=== PATIENT | male | born 1980 | race Caucasian/White ===

== ENCOUNTER 2017-11-28 17:08 | Emergency (ER) | payer SELFPAY ==
[~2017-11-28] VITALS: Ht 180.3 cm; Wt 124.7 kg
[~2017-11-28 17:08] MED LIST: PAXIL; VALS160T51 OR
[2017-11-28 17:15] VITALS: BP 150/95
[2017-11-28] MEDS ORDERED: TETANUS-DIPTH-ACEL PERTUSSIS 0.5ML SYRG IM ONE (18:45)
[2017-11-28] MEDS ORDERED: LIDOCAINE 1% (LOCAL ANESTH.) PF 5ml SDV ID ONE (19:15)
== END 2017-11-28 19:11 | disposition home or self-care (01) ==
LOC: ER 17:08
DX: S61.412A Laceration without foreign body of left hand, initial encounter (principal); I11.0 Hypertensive heart disease with heart failure; I50.9 Heart failure, unspecified; X58.XXXA Exposure to other specified factors, initial encounter; Y93.89 Activity, other specified; Y99.8 Other external cause status; Y92.89 Other specified places as the place of occurrence of the external cause
CPT/HCPCS: 12001; 90471; 90715

== ENCOUNTER 2024-10-03 16:59 | Inpatient (IN) | payer BC, OTHER ==
[~2024-10-03] VITALS: Ht 180.3 cm; Wt 148.1 kg
[~2024-10-03 16:59] MED LIST changes: +VALS160T4 OR; -VALS160T51 OR
[2024-10-03] MEDS: ASPirin 81 mg TAB PO ONE (17:15)
[2024-10-03] MEDS: cloNIDine HCL 0.1 MG TAB PO ONE (17:16)
--- NOTE | 2024-10-03 17:16 | ED.PDOC ---
HPI Comments This is a 44 year old male presenting to the ED with chief complaint of chest pain. Patient reports that he started to experiencing right sided chest tightness that radiated to his left chest and with associated SOB, dizziness, lightheadedness, and sweats this morning while driving to work. Patient relays that he ended up going to work any ways, staying until the end of his shift and went home to check his BP, coming back as 198/137. Patient states that his pain is now a 4/10 and his pain is worsened with movement and deep breathing. Patient denies any headache, N/V, fever, chills, abdominal pain, or syncope. Chief Complaint: Chest Pain Time Seen by MD: 17:11 Primary Care Provider: KIRK Reviewed Notes: Nurses Notes, Medications, Allergies Allergies: Coded Allergies: NO KNOWN ALLERGIES (Unverified , 01/02/11) Home Meds Reported Medications [Paxil] No Conflict Check 01/02/11 Valsartan (Diovan) 160 Mg Tab, 160 MG OR 01/02/11 Information Source: Patient Mode of Arrival: Ambulatory Severity: Moderate Timing: Hours Duration: Since onset Prehospital treatment: None Location: Chest (R), Chest (L) Radiation: No Radiation Quality: Tightness Onset: At Rest Cardiac Risk Factors: HTN PE Risk Factors: None History of: AL Associated Signs and Symptoms: SOB Past Medical History PAST MEDICAL HISTORY: Anxiety, CHF, Depression, HTN, Kidney Stones, AL, Seizures Surgical History (Other): Kidney stent Family History Family History: Reviewed,noncontributory to illness Social History Smoker: Non-Smoker Alcohol: Occasionally Drugs: Denies Drug Use Lives In: Home Constitutional: reports: sweats; denies: chills, diaphoresis, fatigue, fever, malaise, weakness, others EENTM: denies: blurred vision, double vision, ear bleeding, ear discharge, ear drainage, ear pain, ear ringing, eye pain, eye redness, hearing loss, mouth pain, mouth swelling, nasal discharge, nose bleeding, nose congestion, nose pain, photophobia, tearing, throat pain, throat swelling, voice changes, others Respiratory: reports: shortness of breath; denies: cough, hemoptysis, orthopnea, SOB at rest, SOB with excertion, stridor, wheezing, others Cardiovascular: reports: chest pain, left arm pain; denies: dizzy spells, diaphoresis, Dyspnea on exertion, edema, irregular heart beat, lightheadedness, palpitations, PND, syncope, others Gastrointestinal: denies: abdomen distended, abdominal pain, blood streaked bowels, constipated, diarrhea, dysphagia, difficulty swallowing, hematemesis, melena, nausea, poor appetite, poor fluid intake, rectal bleeding, rectal pain, vomiting, others Genitourinary: denies: burning, dysuria, flank pain, frequency, hematuria, incontinence, penile discharge, penile sore, pain, testicle pain, testicle swelling, urgency, others Neurological: reports: dizziness; denies: fainting, headache, left sided numbness, left sided weakness, numbness, paresthesia, pre-existing deficit, right sided numbness, right sided weakness, seizure, speech problems, tingling, tremors, weakness, others Musculoskeletal: denies: back pain, gout, joint pain, joint swelling, muscle pain, muscle stiffness, neck pain, others Integumetry: denies: bruises, change in color, change in hair/nails, dryness, laceration, lesions, lumps, rash, wounds, others Allergic/Immunocompromised: denies: Difficulty Healing, Frequent Infections, Hives, Itching, others Hematologic/Lymphatic: denies: anemia, blood clots, easy bleeding, easy bruising, swollen glands, others Endocrine: denies: excessive hunger, excessive sweating, excessive thirst, excessive urination, flushing, intolerance to cold, intolerance to heat, unexplained weight gain, unexplained weight loss, others Psychiatric: denies: anxiety, bipolar disorder, depression, hopeless, panic disorder, schizophrenia, sleepless, suicidal, others All Other Systems: Reviewed and Negative Physical Exam General Appearance: Moderate Distress HEENT: Normal ENT Inspection, Pharynx Normal, TMs Normal Neck: Full Range of Motion, Non-Tender, Normal, Normal Inspection Respiratory: Chest Non-Tender, Lungs Clear, No Accessory Muscle Use, No Respiratory Distress, Normal Breath Sounds Cardiovascular: No Edema, No JVD, No Murmur, No Gallop, Normal Peripheral Pulses, Regular Rate/Rhythm Breast Exam: Deferred Gastrointestinal: No Organomegaly, Non Tender, No Pulsatile Mass, Normal Bowel Sounds, Soft Genitalia: Deferred Pelvic: Deferred Rectal: Deferred Extremities: No calf tenderness, Normal capillary refill, Normal inspection, Normal range of motion, Non-tender, No pedal edema Musculoskeletal : Apperance: Normal Neurologic: Alert, certified nurses aide II-XII nml as Tested, No Motor Deficits, Normal Affect, Normal Mood, No Sensory Deficits Cerebellar Function: Normal Reflexes: Normal Skin: Dry, Normal Color, Warm Lymphatic: No Adenopathy EKG EKG : Pulse Rate (adult): 78 [place]: Normal Cardiac Rhythm: NSR Block: None Hypertrophy: None ST: Normal Was a procedure done? Was a procedure done?: No CP Differential Dx Differential Diagnosis: Angina, AL, Pulmonary Embolus Differential Diagnosis: CHF X-Ray, Labs, Meds, VS Vital Signs Date Time Temp Pulse Resp B/P (MAP) Pulse Ox O2 Delivery O2 Flow Rate FiO2 10/03/24 18:33 68 10/03/24 18:19 170/109 10/03/24 18:00 73 10/03/24 17:41 72 18 96 Room Air* 0 21 10/03/24 17:41 72 18 177/120 (139) 96 10/03/24 17:20 78 10/03/24 17:16 211/138 10/03/24 17:04 78 10/03/24 17:01 97.5 81 20 211/138 (162) 97 97.5 Lab Test 10/03/24 18:30 10/03/24 17:03 Range/Units Troponin I High Sensitivity 72 *H 74 *H </=54 ng/L White Blood Count 8.7 4.4-10.8 10^3/uL Red Blood Count 5.76 4.5-5.90 10^6/uL Hemoglobin 15.7 13.5-17.5 g/dL Hematocrit 46.2 41.0-53.0 % Mean Corpuscular Volume 80.3 80.0-100.0 fL Mean Corpuscular Hemoglobin 27.3 L 28.0-32.0 pg Mean Corpuscular Hemoglobin Concent 34.0 32.0-36.0 g/dL Red Cell Distribution Width 15.3 H 11.8-14.3 % Platelet Count 235 140-450 10^3/uL Mean Platelet Volume 7.2 6.9-10.8 fL Neutrophils (%) (Auto) 61.5 37.0-80.0 % Lymphocytes (%) (Auto) 27.6 10.0-50.0 % Monocytes (%) (Auto) 6.8 0.0-12.0 % Eosinophils (%) (Auto) 3.5 0.0-7.0 % Basophils (%) (Auto) 0.6 0.0-2.0 % Neutrophils # (Auto) 5.3 1.6-8.6 10 ^3/uL Lymphocytes # (Auto) 2.4 0.4-5.4 10 ^3/uL Monocytes # (Auto) 0.6 0-1.3 10 ^3/uL Eosinophils # (Auto) 0.3 0-0.8 10 ^3/uL Basophils # (Auto) 0.1 0-0.2 10 ^3/uL Nucleated Red Blood Cells 0.4 % D-Dimer, Quantitative 0.38 0.0-0.49 mg/L FEU Sodium Level 143 136-145 mmol/L Potassium Level 3.2 L 3.5-5.1 mmol/L Chloride Level 106 98-107 mmol/L Carbon Dioxide Level 28 20-31 mmol/L Anion Gap 9 5-15 Blood Urea Nitrogen 17 9-23 mg/dL Creatinine 1.16 0.700-1.30 mg/dL Glomerular Filtration Rate Calc 79 >90 mL/min BUN/Creatinine Ratio 14.7 10.0-20.0 Serum Glucose 90 74-106 mg/dL Calcium Level 9.6 8.7-10.4 mg/dL B-Type Natriuretic Peptide 11.04 0-100 pg/mL Current Medications Medications (Trade) Dose Ordered Sig/Tristen Route Start Time Stop Time Status Last Admin Aspirin 162 mg ONCE ONCE PO 10/03/24 17:15 10/03/24 17:16 DC 10/03/24 17:15 Clonidine HCl (Catapres Tablet) 0.2 mg ONCE ONCE PO 10/03/24 17:15 10/03/24 17:16 DC 10/03/24 17:16 Chest XR indicates: Mild pulmonary vascular congestion or viral pneumonias The patient was given clonidine 0.2 mg by mouth The patient was given aspirin 160 mg by mouth The D-dimer is within normal limits The patient's chemistry panel shows hypokalemia at 3.2 The patient is being given potassium p.o. The CBC is within normal limits The patient's troponin level went from 74-72 A cardiology consult will be obtained. The patient is being admitted at this time Images Reviewed?: Images reviewed and evaluated by me Time of 1ST Reevaluation: 19:23 Reevaluation 1ST: Unchanged Patient Education/Counseling: Diagnosis, Treatment Family Education/Counseling: No Family Present Additional Information Reviewed patient's previous visit(s): 11/28/2017 for laceration The following tests were ordered, and results were reviewed by me: CBC, BMP, UA, D-Dimer, Troponin, EKG, Chest XR Additional information was gathered from interviewing the following independent historian: None I reviewed and agreed with the following test results read by other provider: Chest XR I discussed treatments and results with medical personnel and: PATIENT Comprehensive systems review obtained and negative except for what is stated in the HPI. SEPSIS Sepsis Screen Physician Orders Electrocardigram (10/03/24 18:00) Electrocardigram (10/03/24 20:00) Troponin-I Hs (10/03/24 20:00) Heplock Iv (10/03/24 17:07) Chest Two Views Routine (10/03/24 17:07) Urinalysis (10/03/24 17:07) Admit (10/03/24 19:22) Nitroglycerin Sublingual (Ntrostat Subli (10/03/24 19:30) Morphine Sulfate Injection (10/03/24 19:30) Stat Ekg For Chest Pain (10/03/24 19:22) Notify Md Of Changes From Base (10/03/24 19:22) Corrections Cadet For 24 Hours (10/03/24 19:22) Emergency Dysrhythmia Protocol (10/03/24 19:22) Rhythm Strips Once Every Shift (10/03/24 19:22) Oxygen By Nasal Cannula (10/03/24 19:22) Vital Signs Date Time Temp Pulse Resp B/P (MAP) Pulse Ox O2 Delivery O2 Flow Rate FiO2 10/03/24 18:33 68 10/03/24 18:19 170/109 10/03/24 18:00 73 10/03/24 17:41 72 18 96 Room Air* 0 21 10/03/24 17:41 72 18 177/120 (139) 96 10/03/24 17:20 78 10/03/24 17:16 211/138 10/03/24 17:04 78 10/03/24 17:01 97.5 81 20 211/138 (162) 97 97.5 Laboratory Tests Test 10/03/24 17:03 White Blood Count 8.7 10^3/uL (4.4-10.8) Medications Medications Dose Ordered Sig/Tristen Route Start Time Stop Time Status Last Admin Dose Admin Aspirin 162 mg ONCE ONCE PO 10/03/24 17:15 10/03/24 17:16 DC 10/03/24 17:15 Clonidine HCl 0.2 mg ONCE ONCE PO 10/03/24 17:15 10/03/24 17:16 DC 10/03/24 17:16 Departure 1 Departure Time of Disposition: 19:24 Impression: Primary Impression: Acute coronary syndrome Disposition: ADMITTED INPATIENT Admit to: Tele Condition: Fair Critical Care Note Critical Care Time?: Yes (55 min-critical care time only) Stability Stability form required: Yes Unstable for transfer: Telemetry monitoring (Telemetry monitoring required), ED Physician Assesment (Clinical assesment) Heart Score Heart Score: Heart Score Response (Comments) Value History Highly Suspicious 2 EKG Normal 0 Age <45 0 Risk Factors >3 or Hx ASHD 2 Troponin 1-2 x's Normal limit 1 Total 5 I personally scribed for EDUARDA HATFIELD MD ([facility]) on 10/03/24 at 17:16. Electronically submitted by Mendoza Holland ([facility]). I personally scribed for EDUARDA HATFIELD MD ([facility]) on 10/03/24 at 17:20. Elect ronically submitted by Mendoza Holland ([facility]). I personally scribed for EDUARDA HATFIELD MD ([employer]) on 10/03/24 at 17:57. Elec tronically submitted by Mendoza Holland ([facility]). EDUARDA HATFIELD MD Oct 03, 2024 17:16
[2024-10-03 17:41] VITALS: PULSE 72; RESP 18; O2SAT 96
--- NOTE | 2024-10-03 17:47 | DVH ---
CHEST RADIOGRAPH Indication: cp Technique: Frontal and lateral view of the chest was obtained Comparison: None FINDINGS: Lines and Tubes: None Lungs: Increased interstitial prominence Pleura: No effusion. No pneumothorax. Cardiomediastinal contours: Unremarkable Bones: Unremarkable IMPRESSION: Mild pulmonary vascular congestion or viral pneumonias
[2024-10-03 18:21] LABS: Chloride 106 mmol/L (98-107); Sodium 143 mmol/L (136-145)
[2024-10-03 18:22] LABS: Anion Gap 9 (5-15); Carbon Dioxide 28 mmol/L (20-31)
[2024-10-03 18:23] LABS: Basophils # (auto) 0.1 10 ^3/uL (0-0.2); Basophils % (auto) 0.6 % (0.0-2.0); Calcium 9.6 mg/dL (8.7-10.4); Eosinophils # (auto) 0.3 10 ^3/uL (0-0.8); Eosinophils % (auto) 3.5 % (0.0-7.0); Hematocrit 46.2 % (41.0-53.0); Hemoglobin 15.7 g/dL (13.5-17.5); Lymphocytes # (auto) 2.4 10 ^3/uL (0.4-5.4); Lymphocytes % (auto) 27.6 % (10.0-50.0); Mean Corpuscular Hemoglobin 27.3 pg (28.0-32.0); Mean Corpuscular Volume 80.3 fL (80.0-100.0); Monocytes # (auto) 0.6 10 ^3/uL (0-1.3); Monocytes % (auto) 6.8 % (0.0-12.0); Neutrophils # (auto) 5.3 10 ^3/uL (1.6-8.6); Neutrophils % (auto) 61.5 % (37.0-80.0); Nucleated Red Blood Cells % 0.4 %; Platelet Count (auto) 235 10^3/uL (140-450); Red Blood Cells 5.76 10^6/uL (4.5-5.90); Red Cell Distribution Width 15.3 % (11.8-14.3); White Blood Cell 8.7 10^3/uL (4.4-10.8)
[2024-10-03 18:25] LABS: Potassium 3.2 mmol/L (3.5-5.1)
[2024-10-03 18:27] LABS: Glucose 90 mg/dL (74-106)
[2024-10-03 18:28] LABS: BUN/Creatinine Ratio 14.7 (10.0-20.0); Blood Urea Nitrogen 17 mg/dL (9-23)
--- NOTE | 2024-10-03 18:34 | ECG ---
[facility] Test Date: 2024-10-03 Test Time: 18:33:28 Pat Name: VIVIANE HOWELL Department: ED Room: [address] [place] [address] Gender: M Hyperbaric Technician: BREANNE : 1980 Requested By: EDUARDA HATFIELD Order Number: [id number] Reading MD: Arturo Whitney Measurements Intervals [place] Rate: 68 P: 39 AK: 158 QRS: 39 QRSD: 102 T: -19 QT: 395 QTc: 421 Interpretive Statements Sinus rhythm Probable inferior infarct, age indeterminate Baseline wander in lead(s) I,II,aVR Electronically Signed On 10-03-2024 22:59:38 PDT by Arturo Whitney Please click the below link to view image of tracing.
[2024-10-03] MEDS ORDERED: MORPHINE SULFATE INJ 2 MG/ml SYRG IV PRN (19:30)
[2024-10-03] MEDS ORDERED: ONDANSETRON HCL 4 MG/2 ML VIAL IV PRN (19:30)
[2024-10-03] MEDS ORDERED: NITROGLYCERIN 0.4 MG SL TAB SL PRN (19:30)
[2024-10-03 19:48] VITALS: PULSE 72; RESP 19; O2SAT 96
[2024-10-03] MEDS: POTASSIUM CHL 20 Meq TABLET PO ONE (20:12)
[2024-10-03] MEDS: hydrALAZINE HCL 25 MG TAB PO SCH (22:38)
[2024-10-03] MEDS: ATORVASTATIN 20 MG TAB PO SCH (22:38)
[2024-10-03 23:10] LABS: Urine Bacteria None Seen /hpf (None Seen)
[2024-10-03 23:23] LABS: Urine Blood Negative /uL (Negative); Urine Clarity Clear (Clear); Urine Color Light-Yellow (Yellow); Urine Protein, UAD Negative (Negative); Urine Squamous Epithelial Cell None Seen /hpf (<5); Urine Urobilinogen Normal (Negative); Urine WBC 2 /HPF (0-3)
--- NOTE | 2024-10-03 23:34 | DVHHP2 ---
History of Present Illness Reason for Visit: Chest pain History of Present Illness 44-year-old male presents for evaluation of chest pain. Patient reports a one day history of pain in his chest at the starting on his right side and radiating to his left. Patient was driving to work when it started. Reports mild shortness for breath. No nausea or vomiting. No other acute complaints reported. Past Medical History MS, seizures, hypertension, depression, CHF Past Surgical History Kidney stent Family History Noncontributory Smoke: No ALCOHOL: occassional Drugs: None Lives: with Family Review of Systems Review of Systems Review of systems are currently negative otherwise addressed in HPI. Allergies: Coded Allergies: NO KNOWN ALLERGIES (Unverified , 01/02/11) Medications Current Medications Medications Dose Ordered Sig/Tristen Route Start Time Stop Time Status Last Admin Dose Admin Nitroglycerin 0.4 mg Q5MINP PRN SL 10/03/24 19:30 Morphine Sulfate 2 mg Q30M PRN IV 10/03/24 19:30 Aspirin 162 mg DAILY PO 10/04/24 10:00 Atorvastatin Calcium 10 mg HS PO 10/03/24 22:00 10/03/24 22:38 10 MG Losartan Potassium 100 mg DAILY PO 10/04/24 10:00 Hydrochlorothiazide 25 mg DAILY PO 10/04/24 10:00 Hydralazine HCl 50 mg Q8HR PO 10/03/24 22:00 10/03/24 22:38 50 MG Ondansetron HCl 4 mg Q4HP PRN IV 10/03/24 19:30 Acetaminophen 650 mg Q6HP PRN PO 10/03/24 19:30 Exam Vital Signs Vital Signs Date Time Temp Pulse Resp B/P (MAP) Pulse Ox O2 Delivery O2 Flow Rate FiO2 10/03/24 22:38 150/105 10/03/24 22:00 66 16 96 10/03/24 19:51 97.9 97.9 10/03/24 19:48 Room Air* 0 21 Exam Gen: 44-year-old male in mild distress, morbidly obese Skin: Warm, dry, normal color and texture, no rash. HEENT: Normocephalic atraumatic, mucous membranes moist and pink. Neck: Cervical and supraclavicular nodes normal without enlargement, trachea is midline, thyroid gland is normal without masses. Pulmonary: Clear to auscultation and percussion bilaterally. Cardiac: Regular rate and rhythm. No murmur Abdomen: Soft, nontender, nondistended, bowel sounds present all 4 quadrants, no guarding, no rigidity, no organomegaly. Extremities: No cyanosis, clubbing, no edema Neuro: Cranial nerves II through XII grossly intact, normal affect and speech, no focal motor deficits. Labs/Xrays ORDERING PHYSICIAN: EDUARDA HATFIELD MD PROCEDURE(s): CXR2 - CHEST TWO VIEWS ROUTINE REASON: cp ORDER NUMBER(s): [id number], ACCESSION NUMBER(s): [id number] CHEST RADIOGRAPH Indication: cp Technique: Frontal and lateral view of the chest was obtained Comparison: None FINDINGS: Lines and Tubes: None Lungs: Increased interstitial prominence Pleura: No effusion. No pneumothorax. Cardiomediastinal contours: Unremarkable Bones: Unremarkable IMPRESSION: Mild pulmonary vascular congestion or viral pneumonias Labs Test 10/03/24 20:00 10/03/24 17:14 10/03/24 17:03 Range/Units Troponin I High Sensitivity 61 *H </=54 ng/L White Blood Count 8.7 4.4-10.8 10^3/uL Red Blood Count 5.76 4.5-5.90 10^6/uL Hemoglobin 15.7 13.5-17.5 g/dL Hematocrit 46.2 41.0-53.0 % Mean Corpuscular Volume 80.3 80.0-100.0 fL Mean Corpuscular Hemoglobin 27.3 L 28.0-32.0 pg Mean Corpuscular Hemoglobin Concent 34.0 32.0-36.0 g/dL Red Cell Distribution Width 15.3 H 11.8-14.3 % Platelet Count 235 140-450 10^3/uL Mean Platelet Volume 7.2 6.9-10.8 fL Neutrophils (%) (Auto) 61.5 37.0-80.0 % Lymphocytes (%) (Auto) 27.6 10.0-50.0 % Monocytes (%) (Auto) 6.8 0.0-12.0 % Eosinophils (%) (Auto) 3.5 0.0-7.0 % Basophils (%) (Auto) 0.6 0.0-2.0 % Neutrophils # (Auto) 5.3 1.6-8.6 10 ^3/uL Lymphocytes # (Auto) 2.4 0.4-5.4 10 ^3/uL Monocytes # (Auto) 0.6 0-1.3 10 ^3/uL Eosinophils # (Auto) 0.3 0-0.8 10 ^3/uL Basophils # (Auto) 0.1 0-0.2 10 ^3/uL Nucleated Red Blood Cells 0.4 % D-Dimer, Quantitative 0.38 0.0-0.49 mg/L FEU Sodium Level 143 136-145 mmol/L Potassium Level 3.2 L 3.5-5.1 mmol/L Chloride Level 106 98-107 mmol/L Carbon Dioxide Level 28 20-31 mmol/L Anion Gap 9 5-15 Blood Urea Nitrogen 17 9-23 mg/dL Creatinine 1.16 0.700-1.30 mg/dL Glomerular Filtration Rate Calc 79 >90 mL/min BUN/Creatinine Ratio 14.7 10.0-20.0 Serum Glucose 90 74-106 mg/dL Calcium Level 9.6 8.7-10.4 mg/dL B-Type Natriuretic Peptide 11.04 0-100 pg/mL Assessment/Plan Assessment/Plan Assessment Chest pain rule out ACS Accelerated hypertension Hypokalemia Morbid obesity Plan Admit the patient to telemetry to the hospitalist Cardiology consultation Replete electrolytes Resume home medications Continue treatment per orders. Plan discussed with: Patient My Orders Orders - KEHINDE DAVALOS AGACNP Procedure Category Date Status Time Admit ADMIT 10/03/24 Transmitted 19:22 Nitroglycerin PHA 10/03/24 In Process Sublingual (Ntrostat 19:30 Morphine Sulfate PHA 10/03/24 In Process Injection 19:30 Stat Ekg For Chest TYLER 10/03/24 In Process Pain 19:22 Notify Of Changes TYLER 10/03/24 In Process From Base 19:22 Car Salesperson For TYLER 10/03/24 In Process 24 Hours 19:22 Emergency Dysrhythmia TYLER 10/03/24 In Process Protocol 19:22 Rhythm Strips Once TYLER 10/03/24 In Process Every Shift 19:22 Oxygen By Nasal RT 10/03/24 Transmitted Cannula 19:22 Aspirin Tablet PHA 10/04/24 In Process 10:00 Atorvastatin (Lipitor) PHA 10/03/24 In Process 22:00 Losartan Tablet PHA 10/04/24 In Process (Cozaar Tablet) 10:00 Hydrochlorothiazide PHA 10/04/24 In Process Tablet (Hydrochlorot 10:00 Hydralazine Hcl PHA 10/03/24 In Process Tablet (Apresoline 22:00 Basic Metabolic Panel LAB 10/04/24 Verified 04:00 * Cardiology Consult CONS 10/03/24 Transmitted 19:22 Ondansetron Hcl PHA 10/03/24 In Process (Zofran) 19:30 Cardiac DIET 10/04/24 Transmitted Diet-2gna,Lofat,Lochol Breakfast Echo 2d Mode Cardiac US 10/03/24 Logged DOP 19:22 Condition: Fair TYLER 10/03/24 In Process 19:22 Acetaminophen Tablet PHA 10/03/24 In Process (Tylenol Tablet) 19:30 Bedrest With Bathroom TYLER 10/03/24 In Process Privileg 19:22 Date of Service: Oct 03, 2024 Billing Provider: KEHINDE DAVALOS Common Visit Codes: [id number] INP/OBS CARE (HIGH) KEHINDE DAVALOS Oct 03, 2024 23:34
[2024-10-04] VITALS (7 sets, daily range): BP systolic 105–160; BP diastolic 57–97; PULSE 68–88; RESP 15–18; TEMP 97.5–98; O2SAT 95–98
[2024-10-04 00:04] LABS: Triglycerides 139 mg/dL (< 150)
[2024-10-04 00:06] LABS: Cholesterol 160 mg/dL (< 200); HDL Cholesterol 31 mg/dL (40-59); LDL Cholesterol 114 mg/dL (< 100)
[2024-10-04] MEDS: ACETAMINOPHEN 325 MG TAB PO PRN (05:01)
[2024-10-04 06:47] LABS: Anion Gap 8 (5-15); Carbon Dioxide 26 mmol/L (20-31); Chloride 104 mmol/L (98-107); Potassium 3.5 mmol/L (3.5-5.1); Sodium 138 mmol/L (136-145)
[2024-10-04 06:48] LABS: Calcium 8.8 mg/dL (8.7-10.4)
[2024-10-04 06:53] LABS: BUN/Creatinine Ratio 14.9 (10.0-20.0); Blood Urea Nitrogen 14 mg/dL (9-23)
[2024-10-04 06:54] LABS: Glucose 109 mg/dL (74-106)
[2024-10-04] MEDS: ATORVASTATIN 20 MG TAB PO SCH (07:56)
[2024-10-04] MEDS: ASPirin 81 mg TAB PO SCH (10:10)
[2024-10-04] MEDS: LOSARTAN POTASSIUM 50 MG TAB PO SCH (10:11)
[2024-10-04] MEDS: hydroCHLOROthiazide 25 MG TAB PO SCH (10:12)
[2024-10-04] MEDS ORDERED: amLODIPine BESYLATE 5 MG TAB PO ONE (11:15)
[2024-10-04 11:22] LABS: Basophils # (auto) 0 10 ^3/uL (0-0.2); Basophils % (auto) 0.5 % (0.0-2.0); Eosinophils # (auto) 0.2 10 ^3/uL (0-0.8); Eosinophils % (auto) 3.5 % (0.0-7.0); Hematocrit 44.7 % (41.0-53.0); Hemoglobin 15.1 g/dL (13.5-17.5); Lymphocytes # (auto) 1.6 10 ^3/uL (0.4-5.4); Lymphocytes % (auto) 27.3 % (10.0-50.0); Mean Corpuscular Hemoglobin 27.3 pg (28.0-32.0); Mean Corpuscular Hgb Conc. 33.9 g/dL (32.0-36.0); Mean Corpuscular Volume 80.8 fL (80.0-100.0); Monocytes # (auto) 0.4 10 ^3/uL (0-1.3); Neutrophils # (auto) 3.5 10 ^3/uL (1.6-8.6); Neutrophils % (auto) 61.7 % (37.0-80.0); Nucleated Red Blood Cells % 0.1 %; Platelet Count (auto) 197 10^3/uL (140-450); Red Blood Cells 5.53 10^6/uL (4.5-5.90); Red Cell Distribution Width 15.5 % (11.8-14.3); White Blood Cell 5.7 10^3/uL (4.4-10.8)
[2024-10-04 12:27] LABS: INR 1.01 (0.9-1.15); Partial Thromboplastin Time 29.9 SEC (24.5-34.5); Prothrombin Time 10.7 sec (9.3-11.8)
[2024-10-04] MEDS ORDERED: LOSA-535 PO (12:33)
[2024-10-04] MEDS ORDERED: HYDR25TA5 PO (12:36)
[2024-10-04] MEDS ORDERED: ATOR10TA52 PO (12:36)
[2024-10-04] MEDS ORDERED: HYDR50TA47 PO (12:36)
[2024-10-04] MEDS: CARVEDILOL 3.125 MG TAB PO ONE (12:47)
--- NOTE | 2024-10-04 13:05 | DVHCONRES ---
Date Seen: Oct 04, 2024 Resident Creating Document: THIAGO JACOME RESIDENT Reason for Consultation chest pain History of Present Illness Patient is a 44-year-old male with past medical history of ureteral stents, hypertension, grand mal seizure 2 episodes in 2010, who comes in due to chest pain. According to the patient, yesterday on 10/03/2024 while he was driving to work at 4:00 a.m. in the morning he felt chest pain which was tight and pressure-like in nature, 4/10 in intensity, worsened with coughing or activity and relieved by resting. Patient localizes the chest pain below right pectoralis minor with radiation to the left. He notes pain continued throughout the day when he checked his blood pressure later at home it was noted to be 198/137 which is what prompted this visit to the hospital. Patient notes he had similar pain for years ago when he underwent left heart catheterization without catheter based interventions given negative coronary artery disease at the time. On review of systems patient is complaining of chills, shortness of breaths that started 2 days ago and dysuria. Serial troponins were 74, 72 and 61. EKG showed minimal dynamic ST changes, however, blood pressure was 170/100 at the time of EKG. Past Medical History ureteral stents, hypertension, grand mal seizure 2 episodes in 2010 Past Surgical History Left knee replacement surgery Family History: Patient reports no known family medical history. Social History Smoking: Denies Alcohol: Occasionally Drugs: Denies Allergies: Coded Allergies: NO KNOWN ALLERGIES (Unverified , 01/02/11) Home Meds Reported Medications Hctz (Hydrochlorothiazide) 25 Mg Tab, 1 TAB PO DAILY 10/04/24 Hydralazine Hcl (Hydralazine Hcl) 50 Mg Tab, 1 TAB PO TID PRN for blood pressure 10/04/24 Losartan Potassium (Losartan Potassium) 100 Mg Tab, 1 TAB PO DAILY, #30 TAB 5 Refills 10/04/24 Discontinued Reported Medications Atorvastatin Calcium (ATORVASTATIN CALCIUM) 10 Mg Tab, 1 TAB PO DAILY 10/04/24 [Paxil] No Conflict Check 01/02/11 Valsartan (Diovan) 160 Mg Tab, 160 MG OR 01/02/11 Current Medications Current Medications Medications (Trade) Dose Ordered Sig/Tristen Route PRN Reason Start Time Stop Time Status Last Admin Nitroglycerin (Ntrostat Sublingual) 0.4 mg Q5MINP PRN SL FOR CHEST PAIN 10/03/24 19:30 Morphine Sulfate 2 mg Q30M PRN IV FOR CHEST PAIN 10/03/24 19:30 Aspirin 162 mg DAILY PO 10/04/24 10:00 10/04/24 10:10 Atorvastatin Calcium (Lipitor) 10 mg HS PO 10/03/24 22:00 10/04/24 07:41 DC 10/03/24 22:38 Losartan Potassium (Cozaar Tablet) 100 mg DAILY PO 10/04/24 10:00 10/04/24 10:11 Hydrochlorothiazide (hydroCHLOROthiazide TABLET) 25 mg DAILY PO 10/04/24 10:00 10/04/24 10:12 Hydralazine HCl (Apresoline Tablet) 50 mg Q8HR PO 10/03/24 22:00 10/04/24 06:31 Ondansetron HCl (Zofran) 4 mg Q4HP PRN IV NAUSEA / VOMITING 10/03/24 19:30 Acetaminophen (Tylenol Tablet) 650 mg Q6HP PRN PO PAIN SCALE 1-3 OR TEMP>100.4 10/03/24 19:30 10/04/24 12:38 Atorvastatin Calcium (Lipitor) 40 mg HS PO 10/04/24 07:45 10/04/24 07:56 Heparin Sodium/ Dextrose 250 ml @ 10 mls/hr Q24H IV 10/04/24 12:45 Amlodipine Besylate (Norvasc Tablet) 10 mg DAILY PO 10/05/24 10:00 10/04/24 11:12 DC Carvedilol (Coreg Tablet) 6.25 mg Q12HR PO 10/04/24 22:00 Review of Systems Patient seen and examined at bedside. Patient is alert and oriented to time, place person and responding to all questions. General: Chills Eyes: No Pain, No Vision change, No Conjunctivae inflammation, No Eyelid inflammation, No Other, No Redness ENT: No Ear pain, No Ear discharge, No Nose pain, No Nose discharge, No Nose congestion, No Mouth pain, No Mouth swelling, No Throat pain, No Throat swelling, No Other Cardiovascular: No Chest Pain, No Palpitations, No Orthopnea, No Paroxysmal No Dyspnea, No Edema, No Lt Headedness, No Other Respiratory: No Cough, No Dry, Shortness of breath, No SOB with exertion, No Wheezing, No Hemoptysis, No Pleuritic Pain, No Sputum, No Other Gastrointestinal: No Nausea, No Vomiting, No Abdominal Pain, No Diarrhea, No Constipation, No Melena, No Hematochezia, No Other Genitourinary: Dysuria, No Frequency, No Incontinence, No Hematuria, No Retention, No Other Musculoskeletal: No other, No neck pain, No shoulder pain, No arm pain, No back pain, No hand pain, No leg pain, No foot pain Skin: No Rash, No Lesions, No Jaundice, No Bruising, No Other Vital Signs Vital Signs Date Time Temp Pulse Resp B/P (MAP) Pulse Ox O2 Delivery O2 Flow Rate FiO2 10/04/24 12:47 79 160/97 10/04/24 12:38 98.2 10/04/24 12:00 15 95 10/04/24 08:02 Room Air* 0 21 Physical Exam General Appearance: Cooperative. Well developed. Well nourished. NAD Head Exam: Normal inspection Neck Exam: Normal inspection. Non-tender. Normal alignment Pulmonary/Respiratory: Chest non-tender. Clear bilateral breath sounds, no crackles, no wheezing. Cardiovascular/Chest: Regular rate and rhythm. No murmurs. No JVD. Peripheral Pulses: 2+ Radial (R). 2+ Radial (L). 2+ Pedal (R). 2+ Pedal (L) Abdominal Exam: Normal bowel sounds. Soft. normal abdomen, no visible veins, Nontender. No hepatospenomegaly. No masses Lower extremities: 1+ lower extremity edema Neuro/Mental Status: A&O x4. Coherent. Thoughts/Psych: Normal thought pattern. Appropriate mood and affect. Good judgement and insight Skin Exam: Normal inspection. Normal color. Warm. Dry Labs/Diagnostic Data Labs Test 10/04/24 11:54 10/04/24 05:29 10/03/24 20:00 10/03/24 18:30 Range/Units Prothrombin Time 10.7 9.3-11.8 sec Prothrombin Time INR 1.01 0.9-1.15 Activated Partial Thromboplast Time 29.9 24.5-34.5 SEC White Blood Count 5.7 # 4.4-10.8 10^3/uL Red Blood Count 5.53 4.5-5.90 10^6/uL Hemoglobin 15.1 13.5-17.5 g/dL Hematocrit 44.7 41.0-53.0 % Mean Corpuscular Volume 80.8 80.0-100.0 fL Mean Corpuscular Hemoglobin 27.3 L 28.0-32.0 pg Mean Corpuscular Hemoglobin Concent 33.9 32.0-36.0 g/dL Red Cell Distribution Width 15.5 H 11.8-14.3 % Platelet Count 197 140-450 10^3/uL Mean Platelet Volume 7.7 6.9-10.8 fL Neutrophils (%) (Auto) 61.7 37.0-80.0 % Lymphocytes (%) (Auto) 27.3 10.0-50.0 % Monocytes (%) (Auto) 7.0 0.0-12.0 % Eosinophils (%) (Auto) 3.5 0.0-7.0 % Basophils (%) (Auto) 0.5 0.0-2.0 % Neutrophils # (Auto) 3.5 1.6-8.6 10 ^3/uL Lymphocytes # (Auto) 1.6 0.4-5.4 10 ^3/uL Monocytes # (Auto) 0.4 0-1.3 10 ^3/uL Eosinophils # (Auto) 0.2 0-0.8 10 ^3/uL Basophils # (Auto) 0 0-0.2 10 ^3/uL Nucleated Red Blood Cells 0.1 % Sodium Level 138 # 136-145 mmol/L Potassium Level 3.5 3.5-5.1 mmol/L Chloride Level 104 98-107 mmol/L Carbon Dioxide Level 26 20-31 mmol/L Anion Gap 8 5-15 Blood Urea Nitrogen 14 9-23 mg/dL Creatinine 0.94 0.700-1.30 mg/dL Glomerular Filtration Rate Calc 102 >90 mL/min BUN/Creatinine Ratio 14.9 10.0-20.0 Serum Glucose 109 H 74-106 mg/dL Calcium Level 8.8 8.7-10.4 mg/dL Troponin I High Sensitivity 61 *H </=54 ng/L Triglycerides Level 139 < 150 mg/dL Cholesterol Level 160 < 200 mg/dL LDL Cholesterol 114 H < 100 mg/dL HDL Cholesterol 31 L 40-59 mg/dL Thyroid Stimulating Hormone (TSH) 2.40 0.55-4.78 uIU/mL Test 10/03/24 17:14 10/03/24 17:03 Range/Units Urine Color Light-yellow Yellow Urine Clarity Clear Clear Urine pH 6.0 5.0-9.0 Urine Specific [place] 1.020 1.001-1.035 Urine Protein Negative Negative Urine Ketones Negative Negative Urine Blood Negative Negative /uL Urine Nitrite Negative Negative Urine Bilirubin Negative Negative Urine Urobilinogen Normal Negative mg/dL Urine Leukocyte Esterase Negative Negative /uL Urine RBC 1 0 - 3 /hpf Urine Microscopic WBC 2 0-3 /HPF Urine Squamous Epithelial Cells None seen <5 /hpf Urine Bacteria None seen None Seen /hpf Urine Glucose Normal Normal mg/dL D-Dimer, Quantitative 0.38 0.0-0.49 mg/L FEU B-Type Natriuretic Peptide 11.04 0-100 pg/mL Assessment Chest pain, rule out ACS Essential hypertension Hypertensive emergency S/p ureteral stents Plan: - patient completed stress test which preliminarily is positive for ischemia - patient is scheduled for left heart catheterization on Wednesday - Continue aspirin, statin - blood pressure management - rest of the plan as per course of hospitalization Thank you so much for the opportunity to consult on your patient. Cardiology team will follow the patient. In case of any questions or concerns please feel free to reach out. Plan discussed with Dr. Medina Plan discussed with: Patient, Other (RN) Visit Coding Cardiology RES Date of Service: Oct 04, 2024 Billing Provider: GEOVANNA MEDINA Sr., MD Cardiology Common Codes: [id number] INP/OBS CARE (High) THIAGO JACOME RESIDENT Oct 04, 2024 13:05
--- NOTE | 2024-10-04 13:57 | ECG ---
[facility] Test Date: 2024-10-03 Test Time: 17:04:55 Pat Name: VIVIANE HOWELL Department: ER Room: 0218T Gender: M Content Management Specialist: CLEO : 1980 Requested By: EDUARDA HATFIELD Order Number: [id number] Reading MD: Arturo Whitney Measurements Intervals Ashley Rate: 78 P: 25 NM: 157 QRS: 8 QRSD: 104 T: 20 QT: 366 QTc: 417 Interpretive Statements Sinus rhythm Electronically Signed On 10-07-2024 19:53:32 PDT by Arturo Whitney Please click the below link to view image of tracing.
[2024-10-04] MEDS: REGADENOSON 0.4 MG/5 ML SYRG IV ONE ×2 (14:35→14:43)
--- NOTE | 2024-10-04 14:49 | DVHPNRES ---
Progress Note Date Seen: Oct 04, 2024 Resident Creating Document: AMI COVARRUBIAS RAMYA Has the PT tested + for MRSA If YES, has PT been informed?: No Medical Necessity Reason Pt with a Central, PICC or Fol: No Subjective Review of Systems This is a 44 year old male with past medical history of OH, hypertension, seizure, and CHF came to the hospital due to chest pain. Per patient, yesterday morning at 4:00 a.m., he suddenly developed right-sided chest pain while he was driving. He described the pain as pressure-like, 7/10, radiating to the left side, constant, but increases with physical activity and with rest. He also reports of nausea, sweating, dizziness, mild shortness of breaths. He denies fever, cough, or any recent sick contacts/chest trauma. Per patient, he had an OH 4 years back, underwent angiography but the findings were not significant and no PCI was performed. It does not follow any cardiology regularly. PMHx: Per HPI PSHx: Noncontributory Family history: Noncontributory Social history: Denies smoking, or any other drug abuse. Drinks socially Home medication: Losartan 100 mg daily, hydralazine 50 mg 3 times daily, hydrochlorothiazide 25 mg daily, atorvastatin 10 mg daily, and amlodipine 10 mg daily. Patient does not take aspirin or clopidogrel. Patient seen and examined at the bedside. Patient is feeling better since admission but still complained of mild chest pain. Patient reports: No new complaints, Feels better Changes from previous H/P or p: Changes Objective vital signs Vital Sign Date Time Temp Pulse Resp B/P (MAP) Pulse Ox O2 Delivery O2 Flow Rate FiO2 10/04/24 14:05 97.5 74 17 105/57 (73) 97 97.5 10/04/24 08:02 Room Air* 0 21 Total Intake and Output 10/03/24 10/03/24 10/04/24 15:00 23:00 07:00 Output Total 700 ml Balance -700 ml medications Current Medications Medications Dose Ordered Sig/Tristen Route Start Time Stop Time Status Last Admin Dose Admin Nitroglycerin 0.4 mg Q5MINP PRN SL 10/03/24 19:30 Morphine Sulfate 2 mg Q30M PRN IV 10/03/24 19:30 Aspirin 162 mg DAILY PO 10/04/24 10:00 10/04/24 10:10 162 MG Losartan Potassium 100 mg DAILY PO 10/04/24 10:00 10/04/24 10:11 100 MG Hydrochlorothiazide 25 mg DAILY PO 10/04/24 10:00 10/04/24 10:12 25 MG Hydralazine HCl 50 mg Q8HR PO 10/03/24 22:00 10/04/24 06:31 50 MG Ondansetron HCl 4 mg Q4HP PRN IV 10/03/24 19:30 Acetaminophen 650 mg Q6HP PRN PO 10/03/24 19:30 10/04/24 12:38 650 MG Atorvastatin Calcium 40 mg HS PO 10/04/24 07:45 10/04/24 07:56 40 MG Heparin Sodium/ Dextrose 250 ml @ 10 mls/hr Q24H IV 10/04/24 12:45 Carvedilol 6.25 mg Q12HR PO 10/04/24 22:00 Examination General Appearance: Alert, Oriented X3, Cooperative, No acute distress HEENT: Atraumatic, PERRLA, EOMI, Mucous membrane moist/pink Respiratory: Bilateral lower zone mild crackles Cardiovascular: Regular rate, Normal S1, Normal S2, No murmurs, no chest wall tenderness Abdominal: Normal bowel sounds, Soft, No tenderness, No hepatospenomegaly, No masses Extremities: Bilateral trace pedal edema Skin: No rashes, No breakdown, No significant lesion Neuro: Normal gait, Normal speech, Strength at 5/5 X4 ext, Normal tone, Sensation intact, Cranial nerves 3-12 NL, Reflexes 2+ Psych/Mental Status: Mental status NL, Mood NL laboratory and microbiology Laboratory Tests 10/04/24 05:29 Test 10/04/24 05:29 Range/Units Serum Glucose 109 H 74-106 mg/dL Labs and/or images reviewed: Labs reviewed by me, Image(s) reviewed by me Problem List/Assessment/Plan Problem List/Assessment/Plan Chest pain, possibly cardiac Hypertensive emergency leading to NSTEMI NSTEMI, likely type 1 Morbid obesity History of hypertension Seizure Hypokalemia * EKGs shows, mild ST depression and T-wave inversion at inferior leads * Trop I is mildly raised, stable * XU score: 4 Plan/recommendation Aspirin, atorvastatin * Heparin drip * Consulted cardiology * Continue home meds * Pain management DIET: Cardiac diet DVT PROPHYLAXIS: Lovenox GI PROPHYLAXIS:: Protonix CODE STATUS: Goal of care discussed for more than 18 minutes, full code DISPOSITION: Telemetry Patient's status and plan discussed with the patient. Case discussed with Dr. Medina. Plan discussed with: Patient, Other (RN) My Orders My Orders Orders - AMI COVARRUBIAS RESDIBUZZ Procedure Category Date Status Time Atorvastatin (Lipitor) PHA 10/04/24 In Process 07:45 Drug Screen LAB 10/04/24 Logged 11:05 Platelet Monitoring [facility] [place] 10/04/24 In Process 11:05 Heparin Per [facility] [place] 10/04/24 In Process Standardized Proce 11:05 Discontinue All Im TYLER 10/04/24 In Process Injections 11:05 Heparin Drip/D5w [facility] 10/04/24 In Process 100units/Ml 12:45 Carvedilol Tablet [facility] 10/04/24 In Process (Coreg Tablet) 22:00 Heparin Per Pharmacy [facility] [place] 10/04/24 In Process Protocol 12:47 Date of Service: Oct 04, 2024 Billing Provider: OMAR MEDINA MD Common Visit Codes: [id number] INP/OBS CARE(HIGH) AMI COVARRUBIAS RESDIENT Oct 04, 2024 14:49 OMAR MEDINA MD Oct 09, 2024 21:40
[2024-10-04] MEDS: HEPARIN SODIUM (PORCINE) 5000 UNITS/ML 1ML VIAL IV ONE ×2 (15:29→23:14)
[2024-10-04] MEDS: HEPARIN DRIP/D5W 100UNITS/ML 250 ML IV SCH ×2 (15:38→23:14)
--- NOTE | 2024-10-04 16:11 | CONS ---
Pharmacy Clinical Information: STARTED HEP RATE @10 ML/HR AND GIVEN BOLUS HEP 4000 UNITS TODAY 10/04 NEXT APTT DIAZ @0 10/04 DOMINGO SHEIKH AWARE AND REPEATED ORDER BACK HEP RATE 10ML/HR MARLEN RICARDO PHARMACIST Oct 04, 2024 16:11
[2024-10-04] MEDS: CARVEDILOL 3.125 MG TAB PO SCH (21:38)
[2024-10-04 22:08] LABS: INR 0.98 (0.9-1.15); Partial Thromboplastin Time 30.5 SEC (24.5-34.5); Prothrombin Time 10.4 sec (9.3-11.8)
[2024-10-05] VITALS (7 sets, daily range): BP systolic 138–146; BP diastolic 89–98; PULSE 64–93; RESP 18–20; TEMP 97.5–98.1; O2SAT 96–98
[2024-10-05 04:01] LABS: Basophils # (auto) 0 10 ^3/uL (0-0.2); Basophils % (auto) 0.4 % (0.0-2.0); Eosinophils # (auto) 0.2 10 ^3/uL (0-0.8); Hematocrit 43.5 % (41.0-53.0); Lymphocytes # (auto) 2.2 10 ^3/uL (0.4-5.4); Lymphocytes % (auto) 27.2 % (10.0-50.0); Mean Corpuscular Hemoglobin 27.4 pg (28.0-32.0); Mean Corpuscular Hgb Conc. 34.5 g/dL (32.0-36.0); Mean Corpuscular Volume 79.4 fL (80.0-100.0); Monocytes # (auto) 0.6 10 ^3/uL (0-1.3); Monocytes % (auto) 7.1 % (0.0-12.0); Neutrophils % (auto) 62.3 % (37.0-80.0); Platelet Count (auto) 199 10^3/uL (140-450); Red Blood Cells 5.48 10^6/uL (4.5-5.90); Red Cell Distribution Width 15.2 % (11.8-14.3)
[2024-10-05 04:11] LABS: Chloride 104 mmol/L (98-107); Sodium 140 mmol/L (136-145)
[2024-10-05 04:12] LABS: Anion Gap 10 (5-15); Carbon Dioxide 26 mmol/L (20-31)
[2024-10-05 04:13] LABS: Calcium 8.8 mg/dL (8.7-10.4)
[2024-10-05 04:14] LABS: Potassium 3.4 mmol/L (3.5-5.1)
[2024-10-05 04:16] LABS: INR 0.97 (0.9-1.15); Partial Thromboplastin Time 39.6 SEC (24.5-34.5); Prothrombin Time 10.3 sec (9.3-11.8)
[2024-10-05 04:21] LABS: Blood Urea Nitrogen 23 mg/dL (9-23); Glucose 116 mg/dL (74-106)
[2024-10-05] MEDS: HEPARIN DRIP/D5W 100UNITS/ML 250 ML IV SCH ×3 (04:30→20:06)
[2024-10-05] MEDS: POTASSIUM EFFERVESENT TAB 25 MEQ PO ONE (09:17)
[2024-10-05] MEDS: ASPirin 81 mg TAB PO SCH (09:18)
[2024-10-05] MEDS ORDERED: amLODIPine BESYLATE 5 MG TAB PO SCH (10:00)
[2024-10-05 11:22] LABS: INR 0.98 (0.9-1.15); Partial Thromboplastin Time 40.4 SEC (24.5-34.5); Prothrombin Time 10.4 sec (9.3-11.8)
--- NOTE | 2024-10-05 11:39 | DVHPNRES ---
Progress Note Date Seen: Oct 05, 2024 Resident Creating Document: THIAGO JACOME RESIDENT Has the PT tested + for MRSA If YES, has PT been informed?: No Medical Necessity Reason Pt with a Central, PICC or Fol: No Subjective Review of Systems Patient seen and examined at bedside. Notes improvement in symptoms compared to yesterday. Patient notes he had a brief episode of chest pain earlier this morning. Objective vital signs Vital Sign Date Time Temp Pulse Resp B/P (MAP) Pulse Ox O2 Delivery O2 Flow Rate FiO2 10/05/24 09:21 76 145/98 10/05/24 09:00 97.8 20 98 97.8 10/04/24 22:55 Room Air* 0 21 Total Intake and Output 10/04/24 10/04/24 10/05/24 15:00 23:00 07:00 Intake Total 500 ml Balance 500 ml medications Current Medications Medications Dose Ordered Sig/Tristen Route Start Time Stop Time Status Last Admin Dose Admin Nitroglycerin 0.4 mg Q5MINP PRN SL 10/03/24 19:30 Morphine Sulfate 2 mg Q30M PRN IV 10/03/24 19:30 Losartan Potassium 100 mg DAILY PO 10/04/24 10:00 10/05/24 09:20 100 MG Hydrochlorothiazide 25 mg DAILY PO 10/04/24 10:00 10/05/24 09:19 25 MG Hydralazine HCl 50 mg Q8HR PO 10/03/24 22:00 10/05/24 06:42 50 MG Ondansetron HCl 4 mg Q4HP PRN IV 10/03/24 19:30 Acetaminophen 650 mg Q6HP PRN PO 10/03/24 19:30 10/05/24 09:21 650 MG Atorvastatin Calcium 40 mg HS PO 10/04/24 07:45 10/04/24 21:39 40 MG Carvedilol 6.25 mg Q12HR PO 10/04/24 22:00 10/05/24 09:21 6.25 MG Aspirin 81 mg DAILY PO 10/05/24 10:00 10/05/24 09:18 81 MG Heparin Sodium/ Dextrose 250 ml @ 17 mls/hr [id number] IV 10/05/24 11:35 Examination General Appearance: Cooperative. Well developed. Well nourished. NAD Head Exam: Normal inspection Neck Exam: Normal inspection. Non-tender. Normal alignment Pulmonary/Respiratory: Chest non-tender. Clear bilateral breath sounds, no crackles, no wheezing. Cardiovascular/Chest: Regular rate and rhythm. No murmurs. No JVD. Peripheral Pulses: 2+ Radial (R). 2+ Radial (L). 2+ Pedal (R). 2+ Pedal (L) Abdominal Exam: Normal bowel sounds. Soft. normal abdomen, no visible veins, Nontender. No hepatospenomegaly. No masses Lower extremities: 1+ lower extremity edema Neuro/Mental Status: A&O x4. Coherent. Thoughts/Psych: Normal thought pattern. Appropriate mood and affect. Good judgement and insight Skin Exam: Normal inspection. Normal color. Warm. Dry laboratory and microbiology Laboratory Tests 10/05/24 03:20 Test 10/05/24 03:20 Range/Units Serum Glucose 116 H 74-106 mg/dL Labs and/or images reviewed: Labs reviewed by me, Image(s) reviewed by me Problem List/Assessment/Plan Problem List/Assessment/Plan Chest pain, rule out ACS Essential hypertension Hypertensive emergency S/p ureteral stents Plan: - patient completed stress test which preliminarily is positive for ischemia - patient is scheduled for left heart catheterization on Wednesday - Continue aspirin, statin - blood pressure management - rest of the plan as per course of hospitalization Thank you so much for the opportunity to consult on your patient. Cardiology team will follow the patient. In case of any questions or concerns please feel free to reach out. Plan discussed with Dr. Medina Plan discussed with: Patient, Other (RN) My Orders My Orders Orders - THIAGO JACOME RESIDENT Procedure Category Date Status Time Cardiolite Multiple NM 10/04/24 Taken 12:28 Npo Except For TYLER 10/06/24 In Process Medications 00:01 Obtain Consent For: ORDERS 10/05/24 Transmitted 08:30 Hold Enoxaparin Day [facility] 10/06/24 In Process Of Procedu 00:01 D/C Tlc [facility] 10/05/24 In Process 08:30 Shave Both Groins [facility] 10/05/24 In Process 08:30 Provide Education [facility] 10/05/24 In Process Materials 08:30 Cl Left Heart Cath CL 10/06/24 Logged 04:00 Comprehensive LAB 10/07/24 Verified Metabolic Panel 04:00 Npo (Nothing By DIET 10/06/24 Transmitted Mouth) Diet Breakfast Obtain Consent For TYLER 10/05/24 In Process Anesthesia 08:30 Visit Coding Cardiology RES Date of Service: Oct 05, 2024 Billing Provider: GEOVANNA MEDINA Sr., MD Cardiology Common Codes: [id number] HOSP CARE(THIAGO De Guzman RESIDENT Oct 05, 2024 11:39
--- NOTE | 2024-10-05 13:51 | DVHSR ---
APPROVED REPORT Exam: Nuclear Stress Test Indication: Chest pain BMI: 0 Medical History Medical History: HTN, MT, CHF Allergies: No known drug allergies Stress Test Details Stress Test: Pharmacologic stress testing performed using 0.4 mg of regadenoson per 5 mL given IV ov er 10 seconds. HR Resting HR: 71 bpmMax Heart Rate (APMHR): 175.963097 bpm Max HR Achieved: 106 bpmTarget HR (85% APMHR): 148.762318 bpm % of APMHR: 60.57 Recovery HR: 83 bpm BP Resting BP: 139/90 mmHg Recovery BP: 142/90 mmHg ECG Resting ECG: Sinus Rhythm Clinical Reason for Termination: Completed protocol Nurse Comments Recieved pt. from [facility]. A/Ox4 on RA. Connected to playground monitor, VS stable. PIV flushes well. Reviewed POC. Pt. verbalized understanding of procedure including risks and side ef fects, agrees for stress testing. Lexiscan stress test performed per protocol. [facility] tech administered Cardiolite. Pt. tolerated well . Pt. stable, no change on exam. VS returned to baseline. Transferred to [facility] via wheelchair w/ te ch. Stress ECG Conclusion There is no evidence of vasodilator induced myocardial ischemia. Left ventricular systolic function is normal. NM EXAM: Myocardial Perfusion REST/STRESS Imaging Protocol: Rest Tc-99m/Stress Tc-99m 1 day Resting Data Rest SPECT myocardial perfusion imaging was performed in supine position 60 minutes following the int ravenous injection of 13.7 mCi of Tc-99m Sestamibi. Time of rest injection: 13:30 Date: 10/04/2024 Time of rest imagin:15 Date: 10/04/2024 Administration Route: IV Administration Site: Left AC Pharmacologic Stress Pharmacologic stress test was performed by injecting Regadenoson 0.4 mg IV push followed by the intra venous injection of 33.3 mCi of Tc-99m Sestamibi. Time of stress injection: 14:35 Date: 10/04/2024 Time of stress imagin:20 Date: 10/04/2024 Administration Route: IV Administration Site: Left AC Gated Stress SPECT was performed 45 minutes after stress injection. The images were gated to evaluate regional wall motion and calculate left ventricular ejection fracti on. Stress only was performed in the Supine position. Perfusion Normal perfusion on both the stress and rest images. Nuclear Conclusion ECG Findings: negative for ischemia Clinical Findings: negative for ischemia Nuclear Findings: negative for ischemia Risk Study: low There is no evidence of vasodilator induced myocardial ischemia. Left ventricular systolic function is normal.
--- NOTE | 2024-10-05 13:52 | DVHPNRES ---
Progress Note Date Seen: Oct 05, 2024 Resident Creating Document: AMI COVARRUBIAS RAMYA Has the PT tested + for MRSA If YES, has PT been informed?: No Medical Necessity Reason Pt with a Central, PICC or Fol: No Subjective Review of Systems Patient seen and examined at bedside. Patient is feeling better since admission. But still complained of mild chest discomfort. Objective vital signs Vital Sign Date Time Temp Pulse Resp B/P (MAP) Pulse Ox O2 Delivery O2 Flow Rate FiO2 10/05/24 09:21 76 145/98 10/05/24 09:00 97.8 20 98 97.8 10/04/24 22:55 Room Air* 0 21 Total Intake and Output 10/04/24 10/04/24 10/05/24 15:00 23:00 07:00 Intake Total 500 ml Balance 500 ml medications Current Medications Medications Dose Ordered Sig/Tristen Route Start Time Stop Time Status Last Admin Dose Admin Nitroglycerin 0.4 mg Q5MINP PRN SL 10/03/24 19:30 Morphine Sulfate 2 mg Q30M PRN IV 10/03/24 19:30 Losartan Potassium 100 mg DAILY PO 10/04/24 10:00 10/05/24 09:20 100 MG Hydrochlorothiazide 25 mg DAILY PO 10/04/24 10:00 10/05/24 09:19 25 MG Hydralazine HCl 50 mg Q8HR PO 10/03/24 22:00 10/05/24 06:42 50 MG Ondansetron HCl 4 mg Q4HP PRN IV 10/03/24 19:30 Acetaminophen 650 mg Q6HP PRN PO 10/03/24 19:30 10/05/24 09:21 650 MG Atorvastatin Calcium 40 mg HS PO 10/04/24 07:45 10/04/24 21:39 40 MG Carvedilol 6.25 mg Q12HR PO 10/04/24 22:00 10/05/24 09:21 6.25 MG Aspirin 81 mg DAILY PO 10/05/24 10:00 10/05/24 09:18 81 MG Heparin Sodium/ Dextrose 250 ml @ 17 mls/hr [id number] IV 10/05/24 11:35 10/05/24 13:03 17 MLS/HR Examination General Appearance: Alert, Oriented X3, Cooperative, No acute distress HEENT: Atraumatic, PERRLA, EOMI, Mucous membrane moist/pink Respiratory: Bilateral lower zone mild crackles Cardiovascular: Regular rate, Normal S1, Normal S2, No murmurs, no chest wall tenderness Abdominal: Normal bowel sounds, Soft, No tenderness, No hepatospenomegaly, No masses Extremities: Bilateral trace pedal edema Skin: No rashes, No breakdown, No significant lesion Neuro: Normal gait, Normal speech, Strength at 5/5 X4 ext, Normal tone, Sensation intact, Cranial nerves 3-12 NL, Reflexes 2+ Psych/Mental Status: Mental status NL, Mood NL laboratory and microbiology Laboratory Tests 10/05/24 03:20 Test 10/05/24 03:20 Range/Units Serum Glucose 116 H 74-106 mg/dL Labs and/or images reviewed: Labs reviewed by me, Image(s) reviewed by me Problem List/Assessment/Plan Problem List/Assessment/Plan Chest pain, possibly cardiac Hypertensive emergency leading to NSTEMI NSTEMI, likely type 1 Morbid obesity History of hypertension Seizure Hypokalemia * EKGs shows, mild ST depression and T-wave inversion at inferior leads * Trop I is mildly raised, stable * XU score: 4 Plan/recommendation * Aspirin, atorvastatin * Heparin drip * Consulted cardiology, planned for left heart catheterization for tomorrow * Continue home meds * Pain management DIET: Cardiac diet DVT PROPHYLAXIS: Lovenox GI PROPHYLAXIS:: Protonix CODE STATUS: Goal of care discussed for more than 18 minutes, full code DISPOSITION: Telemetry Patient's status and plan discussed with the patient. Case discussed with Dr. Medina. Plan discussed with: Patient, Spouse, Other (RN) My Orders My Orders Orders - AMI COVARRUBIAS RESDIBUZZ Procedure Category Date Status Time Aspirin Tablet PHA 10/05/24 In Process 10:00 Heparin Per Pharmacy [facility] 10/04/24 In Process Protocol 22:25 Hepatitis B Surface LAB 10/04/24 In Process Antigen 23:33 Hepatitis C Antibody LAB 10/04/24 In Process 23:33 Heparin Per Pharmacy [facility] 10/05/24 In Process Protocol 04:33 Heparin Drip/D5w PHA 10/05/24 In Process 100units/Ml 11:35 Date of Service: Oct 05, 2024 Billing Provider: OMAR MEDINA MD Common Visit Codes: [id number] INP/OBS CARE(HIGH) HEROCIOAL,HEWAD RESDIENT Oct 05, 2024 13:52 OMAR MEDINA MD Oct 09, 2024 21:57
--- NOTE | 2024-10-05 14:57 | CONS ---
Pharmacy Clinical Information: HEPARIN PER PHARMACY REVIOUS RATE:1500UNITS/HR (APTT 40.4) NEW RATE: 1700UNITS/HR NEXT APTT DRAW @1900 KORI MONTALVO AWARE PER RX PROTOCOL SALVATORE CASTRO PHARMACIST Oct 05, 2024 14:57
--- NOTE | 2024-10-05 16:54 | DVHSR ---
APPROVED REPORT EXAM: Two-dimensional and M-mode echocardiogram with Doppler and color Doppler. Blood Pressure: 136/89 mmHg INDICATION Chest Pain RISK FACTORS Height: 70, Weight: 318 DIMENSIONS LVDd4.1 (3.8-5.7cm)LA (2D)4.1 (1.9-4.0cm)Aortic Root3.9 (2.0-3.7cm) LVDs2.9 (2.5-4.0cm)LA (MM) (1.9-4.0cm)Aortic Cusp Exc2.1 (1.5-2.0cm) EF (%) 56.0 (55-70%)Rt. Atrium3.9 (1.9-4.0cm)Asc. Aorta3.6 cm Mitral Valve MitralMitral Stenosis E wave0.81m/sMV Mean GR.mmHg A wave0.85m/sMV Peak GR.32mmHg E/A ratio1.02D MVAcm2 DECEL [id number] 1/2 Xiuh01rf IVRTmsDop MVA3.67cm2 Aortic Valve Aortic ValveAortic Stenosis V11.18m/Juan Mean GR.4mmHg V21.39m/Juan Peak GR.8mmHg LVOT Diameter2.2 (1.8-2.4cm)Doppler AVA3.23cm2 Pulmonic Valve V21.09m/s Other Information Technically limited study due to body habitus. Conclusion Technically good study. Sinus rhythm. Aortic root enlargement. Mild left atrial enlargement. EF of 60% with normal RV function. Dopplers unremarkable. No pericardial effusion masses or vegetations.
[2024-10-05 19:49] LABS: INR 0.96 (0.9-1.15); Partial Thromboplastin Time 45.6 SEC (24.5-34.5); Prothrombin Time 10.2 sec (9.3-11.8)
--- NOTE | 2024-10-05 20:04 | CONS ---
Pharmacy Clinical Information: INCREASE HEPARIN DRIP RATE TO 1900 UNITS/HR PER APTT OF 45.6 NEXT APTT DRAW SCHEDULED FOR 10/06 @0200 PER RX PROTOCOL KORI ROSALES CONFIRMED AND READ BACK Valentine Rubio PHARMACIST Oct 05, 2024 20:04
[2024-10-06] VITALS (12 sets, daily range): BP systolic 127–165; BP diastolic 74–105; PULSE 69–96; RESP 12–19; TEMP 97.8–98.6; O2SAT 95–97
[2024-10-06 02:32] LABS: INR 0.99 (0.9-1.15); Partial Thromboplastin Time 62.4 SEC (24.5-34.5); Prothrombin Time 10.5 sec (9.3-11.8)
[2024-10-06 09:14] LABS: Basophils # (auto) 0 10 ^3/uL (0-0.2); Basophils % (auto) 0.6 % (0.0-2.0); Eosinophils # (auto) 0.2 10 ^3/uL (0-0.8); Eosinophils % (auto) 3.1 % (0.0-7.0); Hematocrit 45.3 % (41.0-53.0); Hemoglobin 15.4 g/dL (13.5-17.5); Lymphocytes # (auto) 1.5 10 ^3/uL (0.4-5.4); Lymphocytes % (auto) 23.6 % (10.0-50.0); Mean Corpuscular Hemoglobin 27.2 pg (28.0-32.0); Mean Corpuscular Hgb Conc. 34.1 g/dL (32.0-36.0); Mean Corpuscular Volume 79.9 fL (80.0-100.0); Monocytes # (auto) 0.4 10 ^3/uL (0-1.3); Monocytes % (auto) 6.4 % (0.0-12.0); Neutrophils # (auto) 4.2 10 ^3/uL (1.6-8.6); Neutrophils % (auto) 66.3 % (37.0-80.0); Nucleated Red Blood Cells % 0.1 %; Platelet Count (auto) 201 10^3/uL (140-450); Red Blood Cells 5.67 10^6/uL (4.5-5.90); Red Cell Distribution Width 15.3 % (11.8-14.3); White Blood Cell 6.3 10^3/uL (4.4-10.8)
[2024-10-06 09:21] LABS: Chloride 105 mmol/L (98-107); Potassium 3.6 mmol/L (3.5-5.1); Sodium 141 mmol/L (136-145)
[2024-10-06 09:22] LABS: Anion Gap 8 (5-15); Calcium 9.6 mg/dL (8.7-10.4); Carbon Dioxide 28 mmol/L (20-31)
[2024-10-06 09:27] LABS: BUN/Creatinine Ratio 18.1 (10.0-20.0); Blood Urea Nitrogen 19 mg/dL (9-23); Glucose 99 mg/dL (74-106)
[2024-10-06 09:29] LABS: INR 1.03 (0.9-1.15); Partial Thromboplastin Time 57.1 SEC (24.5-34.5); Prothrombin Time 10.9 sec (9.3-11.8)
[2024-10-06 10:24] LABS: Hepatitis B Surface Antigen Negative (Negative); Hepatitis C Antibody Negative (Negative)
[2024-10-06] MEDS: IODIXANOL 320MG/ML 100ML BTL IV ONE (14:15)
[2024-10-06] MEDS: fentaNYL CITRATE 100 MCG/2 ML VL ONE (14:25)
[2024-10-06] MEDS: VERAPAMIL 2.5MG/ML INJ 2ML VIAL IV ONE (14:25)
[2024-10-06] MEDS: MIDAZOLAM HCL 2MG/2ML 2ml VIAL (1mg/ml) ONE (14:25)
[2024-10-06] MEDS: LIDOCAINE 2%HCL (LOCAL ANESTH.) INJ 20ML MDV ONE (14:25)
--- NOTE | 2024-10-06 15:10 | DVHPNRES ---
Progress Note Date Seen: Oct 06, 2024 Resident Creating Document: AMI COVARRUBIAS RAMYA Has the PT tested + for MRSA If YES, has PT been informed?: No Medical Necessity Reason Pt with a Central, PICC or Fol: No Subjective Review of Systems Patient seen and examined at the bedside. Patient is feeling better since admission. Post catheterization, the patient is clinically and vitally stable, arterial function area is inspected, no sign of hematoma or active bleeding. Patient reports: No new complaints Changes from previous H/P or p: Changes Objective vital signs Vital Sign Date Time Temp Pulse Resp B/P (MAP) Pulse Ox O2 Delivery O2 Flow Rate FiO2 10/06/24 13:00 98.6 91 18 146/85 (105) 97 98.6 10/06/24 08:00 Room Air* 0 21 Total Intake and Output 10/05/24 10/05/24 10/06/24 15:00 23:00 07:00 Intake Total 2000 ml 2250 ml Balance 2000 ml 2250 ml medications Current Medications Medications Dose Ordered Sig/Tristen Route Start Time Stop Time Status Last Admin Dose Admin Nitroglycerin 0.4 mg Q5MINP PRN SL 10/03/24 19:30 Morphine Sulfate 2 mg Q30M PRN IV 10/03/24 19:30 Losartan Potassium 100 mg DAILY PO 10/04/24 10:00 10/06/24 09:25 100 MG Hydrochlorothiazide 25 mg DAILY PO 10/04/24 10:00 10/06/24 09:23 25 MG Hydralazine HCl 50 mg Q8HR PO 10/03/24 22:00 10/06/24 05:47 50 MG Ondansetron HCl 4 mg Q4HP PRN IV 10/03/24 19:30 Acetaminophen 650 mg Q6HP PRN PO 10/03/24 19:30 10/06/24 09:25 650 MG Atorvastatin Calcium 40 mg HS PO 10/04/24 07:45 10/05/24 22:01 40 MG Carvedilol 6.25 mg Q12HR PO 10/04/24 22:00 10/06/24 09:26 6.25 MG Aspirin 81 mg DAILY PO 10/05/24 10:00 10/06/24 09:24 81 MG Heparin Sodium/ Dextrose 250 ml @ 19 mls/hr [id number] IV 10/05/24 20:00 10/06/24 13:16 19 MLS/HR Examination General Appearance: Alert, Oriented X3, Cooperative, No acute distress HEENT: Atraumatic, PERRLA, EOMI, Mucous membrane moist/pink Respiratory: Clear to auscultation, Normal air movement Cardiovascular: Regular rate, Normal S1, Normal S2, No murmurs, no chest wall tenderness Abdominal: Normal bowel sounds, Soft, No tenderness, No hepatospenomegaly, No masses Extremities: No clubbing, No cyanosis, No edema, Normal pulses, No tenderness/swelling Skin: No rashes, No breakdown, No significant lesion Neuro: Normal gait, Normal speech, Strength at 5/5 X4 ext, Normal tone, Sensation intact, Cranial nerves 3-12 NL, Reflexes 2+ Psych/Mental Status: Mental status NL, Mood NL laboratory and microbiology Laboratory Tests 10/06/24 08:37 Test 10/06/24 08:37 Range/Units Serum Glucose 99 74-106 mg/dL Labs and/or images reviewed: Labs reviewed by me, Image(s) reviewed by me Problem List/Assessment/Plan Problem List/Assessment/Plan Chest pain, possibly cardiac Hypertensive emergency leading to NSTEMI NSTEMI, likely type 1 Morbid obesity History of hypertension Seizure Hypokalemia * EKGs shows, mild ST depression and T-wave inversion at inferior leads * Trop I is mildly raised, stable * XU score: 4 Plan/recommendation * Aspirin, atorvastatin * Heparin drip * Consulted cardiology, left heart catheterization performed, shows no significant coronary artery disease. * Continue home meds * Pain management DIET: Cardiac diet DVT PROPHYLAXIS: Lovenox GI PROPHYLAXIS:: Protonix CODE STATUS: Goal of care discussed for more than 18 minutes, full code DISPOSITION: Telemetry Patient's status and plan discussed with the patient. Case discussed with Dr. Medina. Plan discussed with: Patient, Other My Orders My Orders Orders - AMI COVARRUBIAS RESDIBUZZ Procedure Category Date Status Time Heparin Drip/D5w PHA 10/05/24 In Process 100units/Ml 20:00 Heparin Per Pharmacy [facility] 10/05/24 In Process Protocol 19:58 Heparin Per Pharmacy [facility] 10/06/24 In Process Protocol 02:52 PTPTT LAB 10/06/24 Logged 14:00 Heparin Per Pharmacy [facility] 6/27/25 In Process Protocol 09:48 Date of Service: Oct 06, 2024 Billing Provider: OMAR MEDINA MD Common Visit Codes: [id number] INP/OBS CARE(HIGH) AMI COVARRUBIAS Oct 06, 2024 15:10 OMAR MEDINA MD Oct 09, 2024 22:19
[2024-10-06] MEDS: hydrALAZINE HCL 20 MG/ML VL ONE (15:16)
--- NOTE | 2024-10-06 15:33 | DVHOP2 ---
Operative Report - 2 Report Details Date: 10/06/24 Preop Diagnosis: CAD Postop Diagnosis: Normal coronaries Surgeon: Geovanna Whitney MD Anesthesiologist: Conscious sedation Anesthesia: Mac, Local Consent: The patient was informed of the risks and benefits of the procedure. These include but are not limited to complications of anesthesia, postoperative infection, incomplete relief of symptoms, recurrence of symptoms, damage to blood vessels, nerves and tendons, deep venous thrombosis, pulmonary embolism and possible need for repeat surgery in the future. Complications: No complications Findings: Normal coronary arteries. Normal end-diastolic pressure. Normal ejection fraction. Indications for Surgery: Chest pain. Abnormal troponin. Name of Procedure Performed Left heart catheterization bilateral cine coronary angiography. Left ventriculography. Procedure Details Procedure Details: Prior local anesthesia with 2% lidocaine to the right wrist and full informed c onsent obtained under ultrasound guidance we gained access into the right radial artery. AJ curved guidewire was then placed into the aortic root and a six [place] sheath placed along with a multipurpose catheter was used to cannulate both right and left coronary ostia and for ventriculography without complications Hemodynamics: Aortic blood pressure was 130/70. End-diastolic pressure was 16 without gradient across the aortic valve on pullback. Coronary anatomy: RCA is large and dominant. It is normal in its proximal mid and distal segments. PDA and posterolateral branches are normal Left main is large and normal. Left anterior descending is large and normal. The circumflex is large with two marginals free of significant disease. Ventriculography in the DICKEY projection shows an EF of 65-70% . Impression: Normal left ventricular end-diastolic pressure at rest. Normal ejection fraction. No significant CAD. Recommendations: Continue medical therapy. Condition Good Disposition Still a Patient Date of Service: Oct 06, 2024 Billing Provider: GEOVANNA WHITNEY Sr., MD Cardiology Common Codes: 79403-[id number] INP/OBS CARE (High) Cardiology Procedure Codes: 96605-VOWJ HEART CATH W/INTRA INJ GEOVANNA WHITNEY Sr., MD Oct 06, 2024 15:33
[2024-10-06 17:15] LABS: INR 1.03 (0.9-1.15); Partial Thromboplastin Time 35.6 SEC (24.5-34.5); Prothrombin Time 10.9 sec (9.3-11.8)
--- NOTE | 2024-10-06 17:49 | DVH ---
Procedure: CT HEAD WITHOUT CONTRAST Study Date and Requested Time: 10/06/2024 04:55 PM History: severe headache Comparison: None Dose: CTDI: 66.82 mGy DLP: 1182.94 mGycm Technique: Multiplanar images obtained through the brain without intravenous contrast. Findings: The vessels and dural venous sinuses appears slightly hyperdense. Correlate for Possible prior contr ast imaging. Otherwise, mild frontal lobe predominant brain atrophy. Mild chronic small vessel ischem ic changes. No masses, mass effect, midline shift, herniation or cytotoxic edema following a large vascular terr itory. No intra-axial or extra-axial fluid collections. No evidence of hydrocephalus. The basal ciste rns are patent. The pituitary gland, sella and parasellar regions are unremarkable. The cerebellar tonsils are in nor mal position. The cerebellum is unremarkable. The orbits and globes are unremarkable. The paranasal sinuses and mastoids are clear. There are no wo rrisome calvarial lesions. Impression: There appears to be some contrast within the vasculatures and dural venous sinuses. Correlate for rec ent contrast administration. Otherwise, no evidence of acute intracranial abnormalities. If symptoms persist, consider MRI for further evaluation
[2024-10-06 22:23] LABS: Amphetamine Screen, Urine Neg (NEGATIVE); Barbiturate Scree,Urine Neg (NEGATIVE); Benzodiazephine Screen, Urine Pos (NEGATIVE); Cannabinoid Screen, Urine Neg (NEGATIVE); Cocaine Screen, Urine Neg (NEGATIVE); Opiate Scree,Urine Neg (NEGATIVE); Phencyclidine Screen, Urine Neg (NEGATIVE)
[2024-10-07] VITALS (7 sets, daily range): BP systolic 135–147; BP diastolic 85–107; PULSE 64–90; RESP 17–19; TEMP 36.5; O2SAT 94–99
[2024-10-07 05:50] LABS: Basophils # (auto) 0 10 ^3/uL (0-0.2); Basophils % (auto) 0.5 % (0.0-2.0); Eosinophils # (auto) 0.2 10 ^3/uL (0-0.8); Eosinophils % (auto) 2.3 % (0.0-7.0); Hematocrit 45.2 % (41.0-53.0); Hemoglobin 15.5 g/dL (13.5-17.5); Lymphocytes # (auto) 1.4 10 ^3/uL (0.4-5.4); Lymphocytes % (auto) 20.9 % (10.0-50.0); Mean Corpuscular Hemoglobin 27.6 pg (28.0-32.0); Mean Corpuscular Hgb Conc. 34.4 g/dL (32.0-36.0); Mean Corpuscular Volume 80.1 fL (80.0-100.0); Monocytes # (auto) 0.4 10 ^3/uL (0-1.3); Monocytes % (auto) 6.5 % (0.0-12.0); Neutrophils # (auto) 4.7 10 ^3/uL (1.6-8.6); Neutrophils % (auto) 69.8 % (37.0-80.0); Nucleated Red Blood Cells % 0.1 %; Platelet Count (auto) 207 10^3/uL (140-450); Red Blood Cells 5.64 10^6/uL (4.5-5.90); Red Cell Distribution Width 15.7 % (11.8-14.3); White Blood Cell 6.8 10^3/uL (4.4-10.8)
[2024-10-07 06:12] LABS: Alanine Aminotransferase 39 U/L (7-40); Alkaline Phosphatase 96 U/L (46-116); Anion Gap 9 (5-15); BUN/Creatinine Ratio 16.5 (10.0-20.0); Blood Urea Nitrogen 21 mg/dL (9-23); Carbon Dioxide 29 mmol/L (20-31); Chloride 103 mmol/L (98-107); Glucose 105 mg/dL (74-106); Sodium 141 mmol/L (136-145); Total Protein 7.4 g/dL (5.7-8.2)
[2024-10-07 06:13] LABS: Albumin 4.2 g/dL (3.2-4.8); Aspartate Aminotransferase 28 U/L (<34); Bilirubin, Total 0.6 mg/dL (0.2-1.0)
[2024-10-07] MEDS ORDERED: CARV-214 PO (11:46)
[2024-10-07] MEDS ORDERED: ASPI-325 PO (11:46)
[2024-10-07] MEDS ORDERED: ATOR20TA50 PO (12:22)
--- NOTE | 2024-10-07 13:31 | DVHDSRES ---
Discharge Summary Date of Admission Resident Creating Document: CORKY ENCINAS RESIDENT Oct 03, 2024 at 19:22 Date of Discharge: Oct 07, 2024 Admitting Diagnosis Chest pain Labs/Diagnostic Data: Laboratory Results Test 10/07/24 04:58 10/06/24 21:20 10/06/24 18:27 10/06/24 16:34 White Blood Count 6.8 10^3/uL (4.4-10.8) Red Blood Count 5.64 10^6/uL (4.5-5.90) Hemoglobin 15.5 g/dL (13.5-17.5) Hematocrit 45.2 % (41.0-53.0) Mean Corpuscular Volume 80.1 fL (80.0-100.0) Mean Corpuscular Hemoglobin 27.6 pg (28.0-32.0) Mean Corpuscular Hemoglobin Concent 34.4 g/dL (32.0-36.0) Red Cell Distribution Width 15.7 % (11.8-14.3) Platelet Count 207 10^3/uL (140-450) Mean Platelet Volume 7.3 fL (6.9-10.8) Neutrophils (%) (Auto) 69.8 % (37.0-80.0) Lymphocytes (%) (Auto) 20.9 % (10.0-50.0) Monocytes (%) (Auto) 6.5 % (0.0-12.0) Eosinophils (%) (Auto) 2.3 % (0.0-7.0) Basophils (%) (Auto) 0.5 % (0.0-2.0) Neutrophils # (Auto) 4.7 10 ^3/uL (1.6-8.6) Lymphocytes # (Auto) 1.4 10 ^3/uL (0.4-5.4) Monocytes # (Auto) 0.4 10 ^3/uL (0-1.3) Eosinophils # (Auto) 0.2 10 ^3/uL (0-0.8) Basophils # (Auto) 0 10 ^3/uL (0-0.2) Nucleated Red Blood Cells 0.1 % Sodium Level 141 mmol/L (136-145) Potassium Level 4.0 mmol/L (3.5-5.1) Chloride Level 103 mmol/L (98-107) Carbon Dioxide Level 29 mmol/L (20-31) Anion Gap 9 (5-15) Blood Urea Nitrogen 21 mg/dL (9-23) Creatinine 1.27 mg/dL (0.700-1.30) Glomerular Filtration Rate Calc 71 mL/min (>90) BUN/Creatinine Ratio 16.5 (10.0-20.0) Serum Glucose 105 mg/dL (74-106) Calcium Level 10.0 mg/dL (8.7-10.4) Total Bilirubin 0.6 mg/dL (0.2-1.0) Aspartate Amino Transferase (AST) 28 U/L (<34) Alanine Aminotransferase (ALT) 39 U/L (7-40) Alkaline Phosphatase 96 U/L (46-116) Total Protein 7.4 g/dL (5.7-8.2) Albumin 4.2 g/dL (3.2-4.8) Urine Opiates Screen Neg (NEGATIVE) Urine Fentanyl Screen Pos (NEGATIVE) Urine Barbiturates Screen Neg (NEGATIVE) Urine Phencyclidine Screen Neg (NEGATIVE) Urine Amphetamines Screen Neg (NEGATIVE) Urine Benzodiazepines Screen Pos (NEGATIVE) Urine Cocaine Screen Neg (NEGATIVE) Urine Cannabinoids Screen Neg (NEGATIVE) Prothrombin Time 10.9 sec (9.3-11.8) Prothrombin Time INR 1.03 (0.9-1.15) Activated Partial Thromboplast Time 35.6 SEC (24.5-34.5) Test 10/06/24 08:37 10/05/24 03:20 10/04/24 11:54 10/03/24 20:00 Thyroid Stimulating Hormone (TSH) 1.94 uIU/mL (0.55-4.78) Hemoglobin A1c 5.3 % A1C (<5.7) Hepatitis B Surface Antigen Negative (Negative) Hepatitis C Antibody Negative (Negative) Magnesium Level 1.9 mg/dL (1.6-2.6) Troponin I High Sensitivity 61 ng/L (</=54) Triglycerides Level 139 mg/dL (< 150) Cholesterol Level 160 mg/dL (< 200) LDL Cholesterol 114 mg/dL (< 100) HDL Cholesterol 31 mg/dL (40-59) Test 10/03/24 17:14 10/03/24 17:03 Urine Color Light-yellow (Yellow) Urine Clarity Clear (Clear) Urine pH 6.0 (5.0-9.0) Urine Specific [place] 1.020 (1.001-1.035) Urine Protein Negative (Negative) Urine Ketones Negative (Negative) Urine Blood Negative /uL (Negative) Urine Nitrite Negative (Negative) Urine Bilirubin Negative (Negative) Urine Urobilinogen Normal mg/dL (Negative) Urine Leukocyte Esterase Negative /uL (Negative) Urine RBC 1 /hpf (0 - 3) Urine Microscopic WBC 2 /HPF (0-3) Urine Squamous Epithelial Cells None seen /hpf (<5) Urine Bacteria None seen /hpf (None Seen) Urine Glucose Normal mg/dL (Normal) D-Dimer, Quantitative 0.38 mg/L FEU (0.0-0.49) B-Type Natriuretic Peptide 11.04 pg/mL (0-100) Other Laboratory Tests 10/07/24 04:58 Brief Hx & Hospital Course: A 44-year-old male with PMHx of ureteral stents, hypertension, grand mal seizures (2 episodes in 2010), and morbid obesity was admitted with chest pain and hypertensive emergency. On 10/03/2024, he experienced substernal chest pain radiating to the left while driving, associated with shortness of breath, chills, and dysuria. Pain persisted throughout the day; at home, his BP was 198/137, prompting ED visit. Troponins peaked at 74 and trended down (72, 61). EKG showed mild dynamic ST changes. Workup revealed NSTEMI (XU score: 4), likely type 1. He was started on aspirin, atorvastatin, and heparin drip. Cardiology consulted; left heart catheterization showed no significant coronary disease. Headache workup including head CT was unremarkable. Headache likely related to hypertensive crisis. Seizure history stable, no acute events. Hospital course was uneventful post-cath, and symptoms improved with blood pressure control and analgesia. Discharge Plan: Optimized antihypertensive therapy, atorvastatin, follow-up with PCP for BP and lipid management, avoid exertion, continue cardiac diet. No need for neurology or cardiology follow-up at this time unless symptoms recur. Disposition: Home in stable condition. Medications: Continue aspirin, atorvastatin, home antihypertensives. Follow-up: Primary care in 1 week. Physical examination on the day of discharge: General Appearance: Alert, Oriented X3, Cooperative, No acute distress HEENT: Atraumatic, PERRLA, EOMI, Mucous membrane moist/pink Respiratory: Clear to auscultation, Normal air movement Cardiovascular: Regular rate, Normal S1, Normal S2, No murmurs, no chest wall tenderness Abdominal: Normal bowel sounds, Soft, No tenderness, No hepatosplenomegaly, No masses Extremities: No clubbing, No cyanosis, No edema, Normal pulses, No tenderness/swelling Skin: No rashes, No breakdown, No significant lesion Neuro: Normal gait, Normal speech, Strength at 5/5 X4 ext, Normal tone, Sensation intact, Cranial nerves 3-12 NL, Reflexes 2+ Psych/Mental Status: Mental status NL, Mood NL Goals of care discussed with the patient for 20 minutes; full code Case discussed with Dr. West Consults/Reason for consult Cardiology for chest pain Operations or Procedures On October 06, 2024: Left heart catheterization bilateral cine coronary angiography. Left ventriculography. Procedure Details Procedure Details: Prior local anesthesia with 2% lidocaine to the right wrist and full informed consent obtained under ultrasound guidance we gained access into the right radial artery. AJ curved guidewire was then placed into the aortic root and a six [place] sheath placed along with a multipurpose catheter was used to cannulate both right and left coronary ostia and for ventriculography without complications Hemodynamics: Aortic blood pressure was 130/70. End-diastolic pressure was 16 without gradient across the aortic valve on pullback. Coronary anatomy: RCA is large and dominant. It is normal in its proximal mid and distal segments. PDA and posterolateral branches are normal Left main is large and normal. Left anterior descending is large and normal. The circumflex is large with two marginals free of significant disease. Ventriculography in the DICKEY projection shows an EF of 65-70% . Impression: Normal left ventricular end-diastolic pressure at rest. Normal ejection fraction. No significant CAD. Recommendations: Continue medical therapy. Condition at Discharge: Stable Final Diagnosis/Problems List Chest pain, possibly cardiac due to below Hypertensive emergency leading to NSTEMI NSTEMI, likely type 2 Morbid obesity Seizures disorder Hypokalemia resolved Discharge Disposition: Home Discharge Instruct/Medications Diet: Consistent carbohydrate, Cardiac 2g Na,low cholest Activity: No Restrictions, As Tolerated Follow Up/Referral: d/c clinic or PCP within 1 week Medications: see prescirption Discharge Statement: "Patient was advised to return to the ER or call 911 if any headaches, dizziness, shortness of breath, chest pain, abdominal pain, bleeding, fevers, or worsening of medical condition. Patient was counseled about treatment plan, medications, possible side effects, patientverbalized understanding. All questions were answered to the best of my ability. This discharge took greater then 30 minutes in planning, reviewing documentation, counseling the patient, and discussing with other team members." ASSESSMENT ASSESSMENT Assessment chest pain ACS or [place] ruled out Addendum Addendum Addendum I was physically present for the amezquita portions of the service provided to patient by THE RESIDENT. I have reviewed the documentation, discussed the case with resident and agree with the resident's documentation except as noted. Also the patient's clinical case was discussed with the patient's nurse. This medical document was created using an electronic medical record system with computerized dictation system. Although this document has been carefully reviewed, there might still be some phonetic and typographical errors. These areas are purely typographical due to imperfections of the software programs, and do not reflect any compromise in the patient's medical care. Late signature. Date of Service: Oct 07, 2024 Billing Provider: MILENA WEST MD Common Visit Codes: 89261-AAW/OBS DISCH DAY >30min Secondary Visit Codes: [id number] CARE PLAN 30 MINUTES (20 minutes) CORKY ENCINAS Oct 07, 2024 13:31 MILENA WEST MD Oct 09, 2024 06:29
--- NOTE | 2024-10-07 13:35 | DVHPN2 ---
Consult Progress Note Subjective Patient reports: No new complaints Objective vital signs Vital Sign Date Time Temp Pulse Resp B/P (MAP) Pulse Ox O2 Delivery O2 Flow Rate FiO2 10/07/24 13:14 36.5 90 10/07/24 13:00 19 143/89 (107) 96 10/07/24 08:00 Room Air* 0 21 Total Intake and Output 10/06/24 10/06/24 10/07/24 15:00 23:00 07:00 Intake Total 0 ml 400 ml Balance 0 ml 400 ml medications Current Medications Medications Dose Ordered Sig/Tristen Route Start Time Stop Time Status Last Admin Dose Admin Losartan Potassium 100 mg DAILY PO 10/04/24 10:00 10/07/24 09:49 100 MG Hydrochlorothiazide 25 mg DAILY PO 10/04/24 10:00 10/06/24 09:23 25 MG Hydralazine HCl 50 mg Q8HR PO 10/03/24 22:00 10/07/24 06:23 50 MG Ondansetron HCl 4 mg Q4HP PRN IV 10/03/24 19:30 Acetaminophen 650 mg Q6HP PRN PO 10/03/24 19:30 10/07/24 10:01 650 MG Atorvastatin Calcium 40 mg HS PO 10/04/24 07:45 10/06/24 21:46 40 MG Carvedilol 6.25 mg Q12HR PO 10/04/24 22:00 10/07/24 09:51 6.25 MG Aspirin 81 mg DAILY PO 10/05/24 10:00 10/07/24 09:50 81 MG Examination: CVS:Normal (Telemetry reviewed consistent with sinus tachycardia 102 beats per minute.) laboratory and microbiology Laboratory Tests 10/07/24 04:58 Test 10/07/24 04:58 Range/Units Serum Glucose 105 74-106 mg/dL Problem List/Assessment/Plan Problem List/Assessment/Plan Problem List/Assessment/Plan Problem List/Assessment/Plan Chest pain, rule out ACS Essential hypertension Hypertensive emergency S/p ureteral stents Plan: - patient completed stress test which preliminarily positive for ischemia - patient s/p coronary angiogram with no significant CAD noted. - Continue aspirin, statin - blood pressure management, titrate as tolerated - normal EF on echo no significant valvular structural abnormalities. Case Discussed with Dr. Whitney. There is no further cardiac work-up indicated at this time. Patient is stable from Cardiology standpoint Thank you for allowing us to participate in this patient's care. Will sign off. This medical document was created using an electronic medical record system with voice recognition software and computerized dictation system. Although this document has been carefully reviewed, there might still be some phonetic and typographical errors. Occasional wrong-word or ``sound-alike substitutions may have occurred due to the inherent limitations of voice recognition software. These areas are purely typographical due to imperfections of the software programs and do not reflect any compromise in the patient's medical care. Please read the chart carefully and recognize, using context, where these substitutions have occurred. Thank you for allowing me to participate in the management of this patient. The treatment plan was discussed with and agreed upon by patient/family including requesting consultants and ordering of imaging/procedures. Thank you so much for the opportunity to consult on your patient. Cardiology team will follow the patient. In case of any questions or concerns please feel free to reach out. Plan discussed with Dr. Whitney Plan discussed with: Patient Dietary Evaluation Review Recommendations by RD: Dietary education by RD Comments: 1) Continue cardiac diet. Encourage optimal PO intake 2) Refer to outpatient RD for weight management 3) Follow-up with cardiology and pulmonology 4) Continue to monitor I&O, labs, and skin integrity Expected Outcomes/Goals: 1) appetite and labs to improve 2) gradual wt loss 3) f/u in 3-5 days Date of Service: Oct 07, 2024 Billing Provider: CAROL BOTELLO Common Visit Codes: 15196-[id number] INP/OBS CARE(HIGH) CAROL BOTELLO Oct 07, 2024 13:35
[2024-10-10 02:06] LABS: Renin Activity 2.8 ng/mL/hr (.)
== END 2024-10-07 14:15 | disposition home or self-care (01) | DRG 281 ==
LOC: ER 17:00 → OVERFLOW 19:22 → TELE-CENTR 10-04 22:30
PROVIDERS: ADMIT Student in an Organized Health Care Education/Training Program; ATTEND Student in an Organized Health Care Education/Training Program
PROC: 4A023N7 Measurement of Cardiac Sampling and Pressure, Left Heart, Percutaneous Approach (ICD-10-PCS; principal; 2024-10-06)
PROC: B211YZZ Fluoroscopy of Multiple Coronary Arteries using Other Contrast (ICD-10-PCS; 2024-10-06)
PROC: B215YZZ Fluoroscopy of Left Heart using Other Contrast (ICD-10-PCS; 2024-10-06)
DX: I16.1 Hypertensive emergency (principal); Z68.42 Body mass index [BMI] 45.0-49.9, adult; I21.A1 Myocardial infarction type 2; I11.0 Hypertensive heart disease with heart failure; I50.9 Heart failure, unspecified; F41.9 Anxiety disorder, unspecified; F32.A Depression, unspecified; G40.409 Other generalized epilepsy and epileptic syndromes, not intractable, without status epilepticus; E87.6 Hypokalemia; E66.01 Morbid (severe) obesity due to excess calories; Z87.442 Personal history of urinary calculi; Z79.899 Other long term (current) drug therapy
CPT/HCPCS: 36415; 70450; 71046; 78452; 80048; 80053; 80061; 80307; 81001; 82088; 83036; 83735; 83880; 84244; 84443; 84484; 85025; 85379; 85610; 85730; 86803; 87340; 93005; 93017; 93306; 93458; 99152; 99291; G0378; J2250; Q9967